=== PATIENT | female | born 1950 | race Caucasian/White ===

== ENCOUNTER 2017-08-15 15:21 | Emergency (ER) | payer OTHER ==
[~2017-08-15] VITALS: Ht 165.1 cm; Wt 64.4 kg
[2017-08-15] MEDS ORDERED: GLYBURIDE 2.52.5 MG PO (15:52)
[2017-08-15] MEDS ORDERED: METFORMIN HCL500 MG PO (15:52)
[2017-08-15] MEDS ORDERED: VALIUM5 MG PO (15:53)
[2017-08-15] MEDS ORDERED: NORCO 7.5-3251 EACH PO (15:54)
[2017-08-15] MEDS ORDERED: OXYBUTYNIN 5 MG5 M2 PO (15:54)
[2017-08-15 17:21] LABS: URINE BLOOD NEGATIVE (Negative); URINE COLOR YELLOW; URINE GLUCOSE-RANDOM* NEGATIVE (Negative); URINE KETONES TRACE (Negative); URINE PROTEIN (DIPSTICK) 2+ (Negative); URINE SPECIFIC GRAVITY 1.015 (1.005-1.035); URINE UROBILINOGEN 0.2 E.U./dl (0.2-1.0)
[2017-08-15 17:32] LABS: URINE LEUKOCYTES-REFLEX 1+ (Negative)
[2017-08-15 17:33] LABS: ICTOTEST (BILI CONFIRMATORY) Negative (Negative); URINE BILIRUBIN NEGATIVE (Negative)
[2017-08-15 17:34] LABS: CASTS None Seen /LPF (None Seen); SQUAMOUS 4-10 Moderate /LPF (0-3)
[2017-08-15 17:35] LABS: URINE RBC None Seen /HPF (0-2); URINE WBC-REFLEX 0-5 Rare /HPF (0-5)
[2017-08-15] MEDS ORDERED: KEFLEX500 M1 PO (17:40)
[2017-08-15 17:49] VITALS: BP 161/76
== END 2017-08-15 17:51 | disposition home or self-care (01) ==
LOC: ER 15:21
PROVIDERS: Emergency Medicine
DX: R41.0 Disorientation, unspecified (principal); N39.0 Urinary tract infection, site not specified; F17.210 Nicotine dependence, cigarettes, uncomplicated; Z88.0 Allergy status to penicillin; W01.198A Fall on same level from slipping, tripping and stumbling with subsequent striking against other object, initial encounter; Y93.89 Activity, other specified; Y92.89 Other specified places as the place of occurrence of the external cause; Y99.8 Other external cause status